=== PATIENT | male | born 1970 | race Caucasian/White ===

== ENCOUNTER 2016-08-11 11:09 | Emergency (ER) | payer OTHER ==
[~2016-08-11] VITALS: Ht 167.6 cm; Wt 90.9 kg
[~2016-08-11 11:09] MED LIST: HYDR1TAB PO; OXYC-176 PO
[2016-08-11 11:24] VITALS: BP 163/106; PULSE 94; RESP 18; O2SAT 98
--- NOTE | 2016-08-11 12:40 | ED.REPORT ---
HPI-Abd Pain M 40 and Over Date of Service Aug 11, 2016 ED Provider: Tomas Kitchen DO Patient is a 45 year old male who presents to the ED complaining of right lower quadrant abdominal pain onset 2 days ago. Associated symptoms include hematuria and dysuria that started today. He denies fever, vomiting, testicular swelling or scrotum pain. The patient states that the pain waxes and wanes at random and is currently rated at a 5/10 but was severe. Nursing Notes Stated Complaint: SEVERE ABDOMINAL PAIN Chief Complaint: Male Abdominal Pain Nursing Notes Reviewed: Yes Allergies: Coded Allergies: No Known Allergies (Verified , 08/11/16) Scheduled PRN Hydrocod/APAP-Expunged, Do Not Renew! (VICODIN 5/500-Expunged Drug, Do Not Renew ) 1 Udtab Tablet 1 UDTAB PO PRN Naproxen (Naproxen) 500 Mg Tab 500 MG PO BID PRN PRN For Pain Ondansetron ODT (Zofran ODT) 4 Mg Tablet 4 MG PO Q4H PRN PRN For Nausea Oxycodone/APAP-Expunged Drug, Do Not Renew! (Percocet 5/325-Expunged Drug, Do Not Renew!) 1 Each Tablet 1 TAB PO PRN Tramadol (Tramadol) 50 Mg Tablet 50 MG PO Q4H PRN PRN For Pain General Time Seen by MD: 12:39 Chief Complaint Abdominal pain Hx Obtained From: Patient Arrived By: Walk-in Sudden in Onset?: Yes Onset Occurred: 2 days ago Symptom Duration: Waxes and wanes Location: : RLQ Quality: Painful Radiation: : Does not radiate Severity: Current: Moderate Associated with: Denies: Fever, Vomiting Recent Healthcare: No recent doctor visit, No recent hospitalization Past Medical History Past Medical History none reported Past Surgical History spinal fusion Smoking History Never Smoker Social History Alcohol Use: 3-5 per day Drug Use: Denies drug use Ambulatory Status Independent Review of Systems Constitutional: Denies: Chills, Fever Respiratory: Denies: Non-productive cough, Shortness of breath, Wheezing GI: Reports: Abdominal pain Male: Reports Dysuria, Reports Hematuria, Denies Scrotal swelling, Denies Testicular pain, Denies Testicular swelling Complete sys rev & neg: except as marked. Physical Exam Initial Vital Signs Vital Signs (First) Date Time Temp Pulse Resp B/P Pulse Ox O2 Delivery O2 Flow Rate FiO2 08/11/16 11:24 35.8 94 18 163/106 98 Room Air Initial VS: Reviewed General/Constitutional: Awake, Alert Respiratory / Chest: Atraumatic, Breath sounds NL, Breath sounds = bilat, No respiratory distress Cardiovascular: Heart rate NL, Regular rhythm, Heart sounds NL Abdomen: Atraumatic, Soft, McBurney's non-tender Tenderness/Guarding/Rebound: Positive: Tender RLQ... Back: Atraumatic, Full range of motion, No CVA tenderness Head / Eyes: Atraumatic, Normocephalic, PERRL, EOMI Skin: Atraumatic, Color NL, No rash, Warm, Dry Neurologic: Oriented X3, Speech NL, No motor deficits, No sensory deficits Psychiatric: Affect NL, Mood NL Interpretation & Diagnostics Lab Results Interpretation Result Diagram: 08/11/16 1328 08/11/16 1328 Test 08/11/16 13:18 08/11/16 13:28 Urine Color Dark yellow (YELLOW) Urine Appearance Slightly cloudy Urine pH 6.0 (5.0-8.0) Urine Specific [place] 1.020 (1.003-1.035) Urine Protein 100mg/dL (NEG,TRACE) Urine Glucose (UA) Negativemg/dL (NEGATIVE) Urine Ketones Negativemg/dL (NEGATIVE) Urine Occult Blood Large (NEGATIVE) Urine Nitrite Negative (NEGATIVE) Urine Bilirubin Negative (NEGATIVE) Urine Urobilinogen Normalmg/dL (NORMAL) Urine Leukocyte Esterase Negative (NEGATIVE) Urine RBC >50/hpf (0-2) Urine WBC 0-5/hpf (0-5) Urine Epithelial Cells Occasional/hpf (NONE-MOD) Urine Crystals None seen (NONE SEEN) Urine Bacteria Few/hpf (NONE-FEW) Urine Hyaline Casts None/lpf (NONE) Urine Granular Casts None seen (NONE SEEN) Urine Waxy Casts None seen (NONE SEEN) Urine Red Blood Cell Casts None seen (NONE SEEN) Urine White Blood Cell Casts None seen (NONE SEEN) Urine Mucus None seen (None Seen) Urine Trichomonas None seen (NONE SEEN) Urine Yeast None (NONE SEEN) Urinalysis Comment None Urine Culture Reflexed Not indicated White Blood Count 13.0th/mm3 (3.8-10.1) Red Blood Count 5.24mil/mm3 (4.40-5.80) Hemoglobin 17.1g/dL (13.8-17.2) Hematocrit 47.7% (41.0-50.0) Mean Corpuscular Volume 91.0fL (81-100) Mean Corpuscular Hemoglobin 32.6pg (27.0-35.0) Mean Corpuscular Hemoglobin Concent 35.8% (32.0-37.0) Red Cell Distribution Width 12.5% (12.3-15.4) Platelet Count 244bil/L (150-400) Neutrophils (%) (Auto) 78.8% (40-74) Lymphocytes (%) (Auto) 9.0% (14-46) Monocytes (%) (Auto) 11.3% (4-12) Eosinophils (%) (Auto) 0.2% (0-5) Basophils (%) (Auto) 0.2% (0-3) Sodium Level 137mEq/L (134-144) Potassium Level 4.1mEq/L (3.5-5.2) Chloride Level 98mEq/L (97-108) Carbon Dioxide Level 21mmol/L (18-29) Blood Urea Nitrogen 11mg/dL (6-24) Creatinine 0.88mg/dL (0.76-1.27) Estimat Glomerular Filtration Rate 99mL/min (>59) Glucose Level 120mg/dL (60-99) Calcium Level 9.5mg/dL (8.5-10.1) Magnesium Level 1.8mg/dL (1.6-2.6) Total Bilirubin 0.6mg/dL (0.0-1.2) Aspartate Amino Transf (AST/SGOT) 69U/L (0-50) Alanine Aminotransferase (ALT/SGPT) 60U/L (0-44) Alkaline Phosphatase 55U/L (25-150) Total Protein 8.0g/dL (6.4-8.4) Albumin 4.0g/dL (3.4-5.0) Lipase 42U/L (13-60) Hold Kidd Top Tube Received (Received) CT Abd / Pelvis Interpretation IMPRESSION: 2-3 mm mild obstructive calculus seen just past the right ureterovesical junction, within the bladder. Nonobstructive 1 mm calculus in the upper pole of the left kidney. Normal appendix. Mildly irregular wall of the bladder, nonspecific and further assessment with cystoscopy could be performed. Hepatic steatosis. Dictated by: Cabrera Bishop M.D. on 08/11/2016 at 14:13 Approved by: Cabrera Bishop M.D. on 08/11/2016 at 14:21 Interpretation / Wet Read by: Interpret - Radiologist Re-Eval/Medical Decision Time of Eval: 14:14 Re-Evaluation/Progress Note: Discussed CT results and plan for discharge. Patient understands and agrees to plan. All questions were addressed. Counseled Regarding: Diagnosis, Lab results, Need for follow-up, When/why to return to ED Discharge & Departure Primary Impression: Kidney stone Disposition: Home Vital Signs - All Vital Signs Date Time Temp Pulse Resp B/P Pulse Ox O2 Delivery O2 Flow Rate FiO2 08/11/16 14:40 36.1 87 16 140/58 98 Room Air 08/11/16 11:24 35.8 94 18 163/106 98 Room Air )( All Prior VS Reviewed: Yes Condition: Stable Patient Instructions: Kidney Stones (ED) Additional Instructions: Your CT showed evidence of a kidney stone. You can take Naproxen as directed for pain. Take Tramadol as prescribed for severe pain. Take Zofran as prescribed for nausea. Follow up with your primary care physician next week. Return to the emergency department if you develop any new or concerning symptoms. Referrals: [facility] Scribe Attestation Portions of this note were transcribed by Fifi Arambula. I, Dr. Fadi Carlisle personally performed the history, physical exam and medical decision-making; I reviewed and confirmed the accuracy of the information in the transcribed note. Signed by: Jhonatan Lainez, 08/11/16 and 1413 Tomas Dickerson DO Aug 11, 2016 12:39 Brittany Arambula Aug 11, 2016 13:23
[2016-08-11] MEDS ORDERED: 0.9% Sodium Chloride 1,000 ML IV ONE (13:10)
[2016-08-11] MEDS ORDERED: Ondansetron 2 mg/mL 2 mL Inj IVPUSH PRN (13:10)
[2016-08-11 13:32] LABS: BASOPHILS % (AUTO) 0.2 % (0-3); EOSINOPHILS % (AUTO) 0.2 % (0-5); MONOCYTES % (AUTO) 11.3 % (4-12); Mean Corpuscular Hemoglobin 32.6 pg (27.0-35.0); NEUTROPHILS % (AUTO) 78.8 % (40-74); Platelet Count 244 bil/L (150-400)
[2016-08-11 13:41] LABS: Magnesium 1.8 mg/dL (1.6-2.6)
[2016-08-11 14:01] LABS: APPEARANCE,URINE SLIGHTLY CLOUDY (CLEAR,HAZY); COLOR,URINE DARK YELLOW (YELLOW); OCCULT BLOOD,URINE LARGE (NEGATIVE); UROBILINOGEN,URINE NORMAL (NORMAL)
--- NOTE | 2016-08-11 14:23 | DRSVH ---
PROCEDURE: CT KUB ([id number]) INDICATIONS: rlq pain TECHNIQUE: Noncontrast 5 mm thick sections acquired from the diaphragms to the symphysis. 5 mm thick coronal an d sagittal reformats were then performed. For radiation dose reduction, the following was used: aut omated exposure control, adjustment of mA and/or kV according to patient size. COMPARISON: None. FINDINGS: Image quality: Excellent. Lung bases: Lung bases are clear. Heart size is normal. Urinary system: Both kidneys are normal in size. 1 mm calculus seen in inferior pole of left kidney. No hydronephrosis or perinephric stranding. The ureters appear decompressed. Minimal right hydroneph rosis. No perinephric fat stranding. There is mild right ureteral dilatation. Both ureters appear no n-dilated throughout their expected courses. Bladder wall thickness is normal; no calcified bladder stones. Other solid organs: Liver and spleen are normal in size. Gallbladder negative. Pancreas is normal in contours. No adrenal nodules. Peritoneum and bowel: Unenhanced bowel loops demonstrate normal wall thickness and caliber. No free fluid or air. Normal appendix. Nodes and vessels: No retroperitoneal or mesenteric adenopathy by size criteria. Aorta and inferior vena cava are normal in caliber. Abdominal wall: No ventral hernias. Pelvis: No free pelvic fluid. No inguinal hernias or adenopathy. Bones: No suspicious bony lesions. No vertebral body compression fractures. IMPRESSION: 2-3 mm mild obstructive calculus seen just past the right ureterovesical junction, within the bladder . Nonobstructive 1 mm calculus in the upper pole of the left kidney. Normal appendix. Mildly irregular wall of the bladder, nonspecific and further assessment with cystoscopy could be per formed. Hepatic steatosis. Dictated by: Cabrera Bishop M.D. on 08/11/2016 at 14:13 Approved by: Cabrera Bishop M.D. on 08/11/2016 at 14:21
[2016-08-11] MEDS ORDERED: ONDA4TAB9 PO (14:26)
[2016-08-11] MEDS ORDERED: NPR500T PO (14:26)
[2016-08-11] MEDS ORDERED: TRAM50TA2 PO (14:26)
[2016-08-11 14:40] VITALS: BP 140/58; PULSE 87; RESP 16; O2SAT 98
== END 2016-08-11 14:45 | disposition home or self-care (01) ==
LOC: SED 11:09
DX: N20.0 Calculus of kidney (principal)
CPT/HCPCS: 36415; 74176; 80053; 81000; 83690; 83735; 85025; 96361; 96374; 96375; 99285; J1885; J2405; J7030